=== PATIENT | female | born 1995 | race Two or more races ===

== ENCOUNTER 2018-01-06 00:49 | Inpatient (IN) | payer MEDICAID ==
[2018-01-06 01:26] VITALS: BMI 34.1
[2018-01-06] MEDS ORDERED: Magnesium Sul 40GM/1L SW 40 GM/1,000 ML ML IV ONE (01:45)
[2018-01-06] MEDS ORDERED: Magnesium Sulfate 4 gm/100 ml 4 GM/100 ML BAG IV ONE (01:45)
[2018-01-06] MEDS: Lactated Ringer's 1,000 ML IV SCH ×2 (02:00→16:00)
--- NOTE | 2018-01-06 02:14 | OBHP ---
Datetime: 01/06/2018 01:56 IP Adm Impression: Term, intrauterine ; No Active Labor; Intact Membranes IP Admit Plan: Admit to unit; Initiate labor induction protocol Admit Comment, IP Provider: 22 yo with IUP at 40+ weeks gestational age, presented to [facility] due to headache and lower extremity swelling. States she has been having headaches and lower extremity sw elling for about a week, but today symptoms worsened. Denies contactions, loss of fluid, vaginal blee ding. Reports movement. care: Dr. Riley; last visit was 12/30 ROS: positive for headache (frontal); no blurry vision, no chest pain, no shortness of breath, no N/V, no burning with urination. Denies seeing flashing lights/aura. OBhx: G1; has hx chlamydia in 2014, HSV2, LGSIL 2016. PMH: prediabetic Fam hx: htn, DM2 Soc hx: denies tobacco, alcohol, drug use Surg hx: none Allergies: all fruit (throat itching) Meds: PNV Assessment: Single IUP at 40 weeks; elevated blood pressure, likely pre-eclamptic Admit to unit; magnesium sulfate bolus and drip, seizure precautions, cervidil. Preeclampsia sarina p- CBC, CMP, uric acid, urinalysis, fibrinogen Dr. Riley made aware Discussed pt w/ Dr. Luis [email or web address] OB Hospitalist on-call. With PGY1, I saw an examined this patient. Agree with note...40+w; Hx pr oteinuria last two visits; MYRICK/Swelling Labd and chart rev'd : no GBS 36w/no Rubella IgG (onl y IgM) : will check pre-eclampsia labs; start MgSO4; Cervidil IOL...conditoin explained to patient an d family members. They understood. Their questions answered ...FOB related to Sade (works at [employer]). spoke with Dr Riley and agreed to above Pelvic Type - PN: Adequate Extremities - PN: Normal Abdomen - PN: Normal Back - PN: Normal Lungs - PN: Normal Heart - PN: Normal Thyroid - PN: Not Done Neurologic - PN: Normal HEENT - PN: Normal General - PN: Normal Presentation-Admit: Vertex FHR - Baseline A Provider: 150 Membranes, Provider: Intact Comments, ACOG Physical Exam: edema to bilateral lower extremities DT3+ Pool Provider: Negative IP Hx Assessment: The History has been Reviewed and is Current EGA AdmitDate IP: 40.2 Vital Signs Provider: Reviewed IP Chief Complaint: Signs/Symptoms Gestational HTN NICHD Variability Prov Fetus A: Moderate 6-25bpm NICHD Accel Fetus A IP Provider: 15X15 FHR Category Provider Fetus A: Category I NICHD Decel Fetus A IP Provider: None Dilatation, Provider: 0 Effacement, Provider: 0 Genitourinary Exam: Normal DTRs - PN: Abnormal
[2018-01-06 02:51] LABS: BASO % 0.5 % (0.0-2.0); EOS # 0.2 K/uL (0.0-0.7); EOS % 1.8 % (0.0-4.0); HEMOGLOBIN 10.5 g/dL (12.0-16.0); LYMPH # 1.8 K/uL (1.0-4.3); LYMPH % 19.1 % (20.0-40.0); MEAN CELL VOLUME 70.6 fl (81.0-99.0); MEAN CORPUSCULAR HEMOGLOBIN 22.9 pg (27.0-31.0); MEAN CORPUSCULAR HGB CONC 32.4 g/dL (33.0-37.0); MONO # 0.8 K/uL (0.0-0.8); MONO % 8.5 % (0.0-10.0); NEUT # 6.5 K/uL (1.8-7.0); NEUT % 70.1 % (50.0-75.0); RBC 4.58 Mil/uL (3.80-5.20); RED CELL DISTRIBUTION WIDTH 15.9 % (11.5-14.5); WHITE BLOOD COUNT 9.2 K/uL (4.8-10.8)
[2018-01-06 02:59] LABS: ALB/GLOB RATIO 0.9 (1.0-2.1); ALBUMIN 3.2 g/dL (3.5-5.0); ALT/SGPT 25 U/L (9-52); AST/SGOT 22 U/L (14-36); BLOOD UREA NITROGEN 6 mg/dl (7-17); CALCIUM 8.5 mg/dL (8.4-10.2); GFR AFRICAN-AMERICAN > 60; GFR NON-AFRICAN AMERICAN > 60; URIC ACID 5.1 mg/Dl (2.2-7.5)
--- NOTE | 2018-01-06 03:02 | OBPN ---
Datetime: 01/06/2018 02:59 IP Progress Note Comment: Cervidl placed intravaginally Datetime: 01/06/2018 01:56 Pool Provider: Negative Membranes, Provider: Intact FHR - Baseline A Provider: 150 Presentation-Admit: Vertex Vital Signs Provider: Reviewed NICHD Accel Fetus A IP Provider: 15X15 FHR Category Provider Fetus A: Category I NICHD Variability Prov Fetus A: Moderate 6-25bpm Dilatation, Provider: 0 Effacement, Provider: 0 NICHD Decel Fetus A IP Provider: None
[2018-01-06 05:20] LABS: SQUAMOUS EPITHIAL < 1 /hpf (0-5); URINE BACTERIA RARE (<OCC); URINE BILIRUBIN NEGATIVE (NEGATIVE); URINE BLOOD NEGATIVE (NEGATIVE); URINE CLARITY SLIGHTY-CLOUDY (Clear); URINE COLOR YELLOW (YELLOW); URINE GLUCOSE (UA) NEG (Normal); URINE LEUKOCYTE ESTERASE NEG Leu/uL (Negative); URINE PROTEIN >=500 mg/dL (NEGATIVE)
[2018-01-06] MEDS ORDERED: Penicillin G 5 Million Unit Vial IVPB ONE (10:03)
[2018-01-06] MEDS ORDERED: Nalbuphine 20 mg/ml Inj (1 ml) IVP ONE (11:55)
[2018-01-06] MEDS ORDERED: Fentanyl/Bupivacaine HCl 250 ML EPI ONE (17:35)
[2018-01-06] MEDS ORDERED: Lidocaine 2% PF (10 ml) Amp ONE (18:47)
[2018-01-06] MEDS ORDERED: Oxytocin 30 units/LR 500ML 30 U/500 ML BAG IV ONE (19:10)
--- NOTE | 2018-01-06 20:22 | OBDS ---
DELIVERY PERSONNEL Delivery Doctor: Yariel Riley MD Cutter Apprentice Hand: Dania Tyson RN /bob christensen Anesthesiologist: melvin MATERNAL INFORMATION Delivery Anesthesia: Spinal Medications in Delivery: pitocin after placenta Estimated Blood Loss (ml): 250 Placenta Cultured: No Maternal Complications: Other Other Maternal Complications: pih on magso4 2 grams /hr LABOR SUMMARY EDC: 01/04/2018 00:00 No. Babies in Womb: 1 Attempted: No Labor Anesthesia: Epidural LABOR INFORMATION Onset of Labor: 01/06/2018 07:00 Complete Dilatation: 01/06/2018 18:35 Cervical Ripening Agents: Cervidil Other Ripening Agents: Cervidil inserted by Dr. Smith Oxytocin: N/A Group B Beta Strep: Negative Antibiotics # of Doses: pen g 5mu x1 pen g 2.5 mu x2 Antibiotics Time of Last Dose: pen g 2.5 at 16 :44 Steroids Given: None Reason Steroids Not Administered: Not Applicable MEMBRANES Membranes Rupture Method: Artificial Rupture of Membranes: 01/06/2018 15:15 Length of Rupture (hrs): 3.97 Amniotic Fluid Color: Clear Amniotic Fluid Amount: Moderate Amniotic Fluid Odor: Normal STAGES OF LABOR Stage 1 hrs: 11 Stage 1 min: 35 Stage 2 hrs: 0 Stage 2 min: 38 Stage 3 hrs: 0 Stage 3 min: 7 Total Time in Labor hrs: 12 Total Time in Labor min: 20 VAGINAL DELIVERY Episiotomy: None Laceration Extension: First Degree Laceration Type: Vaginal Laceration Repair: Yes Initial Vag Sponge Count: 5 Final Vag Sponge Count: 5 Initial Vag Sharps Count: 1 Final Vag Sharps Count: 1 Sponge Count Correct: Yes Sharps Count Correct: Yes BABY A INFORMATION Delivery Date/Time: 01/06/2018 19:13 Method of Delivery: Vaginal Born in Route : Yes : N/A SHOULDER DYSTOCIA BABY A Delivery Date/Time: 01/06/2018 19:13 PRESENTATION/POSITION BABY A Presentation: Cephalic Cephalic Presentation: Vertex Vertex Position: Left Occipital Anterior Breech Presentation: N/A PLACENTA INFORMATION BABY A Placenta Delivery Time : 01/06/2018 19:20 Placenta Method of Delivery: Spontaneous Placenta Status: Delivered SCORES BABY A Heart Rate 1 min: >100 bpm Resp Effort 1 min: Good Cry Reflex Irritability 1 min: Cough or Sneeze or Pulls Away Muscle Tone 1 min: Active Motion Color 1 min: Body [place], Extremities Blue Resuscitation Effort 1 min: Tactile Stimulation SCORE 1 MIN: 9 Heart Rate 5 min: >100 bpm Resp Effort 5 min: Good Cry Reflex Irritability 5 min: Cough or Sneeze or Pulls Away Muscle Tone 5 min: Active Motion Color 5 min: Body [place], Extremities Blue SCORE 5 MIN: 9 Heart Rate 10 min: >100 bpm Resp Effort 10 min: Good Cry Reflex Irritability 10 min: Cough or Sneeze or Pulls Away Muscle Tone 10 min: Active Motion Color 10 min: Completely [place] SCORE 10 MIN: 10 INFANT INFORMATION BABY A Gestational Age at Delivery: 40+2 Gestational Status: Term Infant Outcome : Liveborn Condition : Stable Sex: Male IDENTIFICATION/MEDS BABY A ID Band Number: [id number] ID Band Location: Left Leg; Left Arm WEIGHT/LENGTH BABY A Birthweight (gms): 3285 Weight (lb): 7 Infant Weight (oz): 4 Length Inches: 20" CORD INFORMATION BABY A No. Cord Vessels: 3 Nuchal Cord : N/A Nuchal Cord Other: none True Knot: none Infant Cord pH Baby Arterial: none Cord pH Baby Venous: none Cord Blood Taken: Yes Banking/Donate Info: none Suction: Mouth ASSESSMENT BABY A Infant Complications: None Physical Findings at Delivery: Within Normal Limits Respirations: Appears Normal Drug Abuse Resistance Education Officer/ALS Called : No Care By: dr curran/ fermin rojas rn Transferred To: Remains with Mother
[2018-01-06] MEDS ORDERED: Oxycodone/Acetaminophen 5/325 mg Tab PO PRN ×2 (20:28)
[2018-01-06] MEDS ORDERED: Labetalol 5 mg/ml Inj 20ML IVP STA (23:36)
[2018-01-07] MEDS ORDERED: Oxycodone/Acetaminophen 5/325 mg Tab PO PRN ×2 (00:10)
[2018-01-07] MEDS ORDERED: Lactated Ringer's 1,000 ML IV SCH (00:10)
[2018-01-07 08:52] LABS: BASO % 0.2 % (0.0-2.0); EOS # 0.1 K/uL (0.0-0.7); EOS % 0.4 % (0.0-4.0); HEMOGLOBIN 9.2 g/dL (12.0-16.0); LYMPH # 1.8 K/uL (1.0-4.3); MEAN CELL VOLUME 71.3 fl (81.0-99.0); MEAN CORPUSCULAR HEMOGLOBIN 22.8 pg (27.0-31.0); MEAN PLATELET VOLUME 7.9 fl (7.2-11.7); MONO % 6.9 % (0.0-10.0); NEUT # 12.2 K/uL (1.8-7.0); NEUT % 80.5 % (50.0-75.0); RBC 4.03 Mil/uL (3.80-5.20); RED CELL DISTRIBUTION WIDTH 16.4 % (11.5-14.5); WHITE BLOOD COUNT 15.2 K/uL (4.8-10.8)
--- NOTE | 2018-01-08 13:45 | OBDCSUM ---
Datetime: 01/08/2018 13:39 Discharged to, Provider: Home Follow up at, Provider: Disch Instr Activity: Bedrest; May be up to bathroom; May be up for meals; May Shower Disch Instr Diet: Regular Discharge Instructions, Provider: Specific instructions as noted Discharge Diagnosis, Provider: Term Delivered; Preeclampsia Follow up in weeks, Provider: 1week Disch Activity Restrictions: No exercising; No lifting; No driving; Minimize walking; Minimize stair -climbing; No sexual activity; Nothing in vagina - [place], tampons, douche Discharge Comment, Provider: patient will be discharged with anti hyper tensive medication call offi ce if any problems Contraception after Delivery: Undecided
[2018-01-09 02:36] VITALS: BP 150/92; PULSE 75; RESP 20; TEMP 97.9; O2SAT 100
== END 2018-01-08 15:25 | disposition home or self-care (01) | DRG 372 ==
LOC: H.EROB2 00:49 → H.L&D 01:28 → H.OB/GYN 01-07 10:34
PROVIDERS: ADMIT Specialist; ATTEND Specialist
PROC: 10E0XZZ Delivery of Products of Conception, External Approach (ICD-10-PCS; principal; 2018-01-06)
PROC: 0HQ9XZZ Repair Perineum Skin, External Approach (ICD-10-PCS; 2018-01-06)
PROC: 4A1HXCZ Monitoring of Products of Conception, Cardiac Rate, External Approach (ICD-10-PCS; 2018-01-06)
DX: O48.0 Post-term pregnancy (principal); O13.4 Gestational [pregnancy-induced] hypertension without significant proteinuria, complicating childbirth; Z3A.40 40 weeks gestation of pregnancy; Z37.0 Single live birth; O70.0 First degree perineal laceration during delivery